=== PATIENT | male | born 2000 | race Caucasian/White ===

== ENCOUNTER 2022-07-19 07:38 | Outpatient (CLI) | payer BC ==
[2022-07-19] VITALS (17 sets, daily range): BP systolic 118–143; BP diastolic 30–102
== END 2022-07-19 23:59 | disposition home or self-care (01) ==
LOC: CARD DIAG 07:38
PROVIDERS: ATTEND Internal Medicine Interventional Cardiology
DX: R06.02 Shortness of breath (principal); R55 Syncope and collapse; R42 Dizziness and giddiness
CPT/HCPCS: 93660